=== PATIENT | male | born 1970 | race African-American/Black ===

== ENCOUNTER 2018-03-01 13:31 | Emergency (ER) | payer OTHER ==
[~2018-03-01] VITALS: Ht 167.6 cm; Wt 85.7 kg
[2018-03-01] MEDS ORDERED: CYCLOBENZAPRINE5 MG PO ×2 (15:15→15:17)
[2018-03-01] MEDS ORDERED: HYDROCODONE-AP1 EAC6 PO ×2 (15:15→15:17)
[2018-03-01 15:51] VITALS: BP 175/100
== END 2018-03-01 15:52 | disposition home or self-care (01) ==
LOC: ER 13:31
DX: S16.1XXA Strain of muscle, fascia and tendon at neck level, initial encounter (principal); R07.89 Other chest pain; R10.9 Unspecified abdominal pain; I10 Essential (primary) hypertension; Z91.041 Radiographic dye allergy status; Z88.1 Allergy status to other antibiotic agents; V49.49XA Driver injured in collision with other motor vehicles in traffic accident, initial encounter; Y93.89 Activity, other specified; Y92.89 Other specified places as the place of occurrence of the external cause; Y99.8 Other external cause status